=== PATIENT | female | born 1955 | race Caucasian/White ===

== ENCOUNTER 2022-06-12 09:00 | Day surgery (SDC) | payer MEDICARE, OTHER ==
[2022-06-10 13:38] LABS: ALBUMIN 3.5 G/DL (3.4-5.0); ALKALINE PHOSPHATASE 107 IU/L (46-116); BLOOD UREA NITROGEN 9 MG/DL (7-18); BUN/CREATININE RATIO 11.5 (10.0-20.0); CALCIUM 9.2 MG/DL (8.5-10.1); CHLORIDE 105 MMOL/L (99-107); CREATININE 0.78 MG/DL (0.40-0.90); PRE OP ALT 22 U/L (30-65); PRE OP ANION GAP 6 (8-16); PRE OP AST 17 U/L (10-37); PRE OP BILIRUB, TOTAL 0.6 MG/DL (0.0-1.0); PRE OP GLUCOSE 105 MG/DL (70-104); PRE OP POTASSIUM 3.9 MMOL/L (3.4-5.1); PRE OP SODIUM 140 MMOL/L (135-145); TOTAL CARBON DIOXIDE 28.9 MMOL/L (24-32); TOTAL PROTEIN 7.1 G/DL (6.4-8.2); eGFR 74 ML/MIN
[2022-06-10 14:05] LABS: BASOPHILS # (AUTO) 0.1 X10'3 (0-0.2); BASOPHILS % (AUTO) 0.8 % (0-1); EOSINOPHILS # (AUTO) 0.2 X10'3 (0-0.9); EOSINOPHILS % (AUTO) 2.5 % (0-6); LYMPHOCYTES # (AUTO) 1.6 X10'3 (1.1-4.8); LYMPHOCYTES % (AUTO) 21.1 % (21-51); MEAN CORPUSCULAR HEMOGLOBIN 29.7 PG (27.0-31.0); MEAN CORPUSCULAR HGB CONC 33.9 g/dL (33.0-36.5); MEAN CORPUSCULAR VOLUME 87.6 FL (78-98); MEAN PLATELET VOLUME 7.6 FL (7.4-10.4); MONOCYTES # (AUTO) 0.5 X10'3 (0-0.9); MONOCYTES % (AUTO) 6.7 % (2-12); NEUTROPHILS # (AUTO) 5.4 X10'3 (1.8-7.7); NEUTROPHILS % (AUTO) 68.9 % (42-75); PRE OP HEMATOCRIT 42.3 % (35.0-45.0); PRE OP HEMOGLOBIN 14.3 g/dL (12.0-16.0); PRE OP PLATELET COUNT 331 X10'3 (140-440); RED BLOOD COUNT 4.83 X10'6 (4.20-5.60); RED CELL DISTRIBUTION WIDTH 13.1 % (11.5-14.5)
[~2022-06-12] VITALS: Ht 157.5 cm; Wt 67.7 kg
[2022-06-12] VITALS (9 sets, daily range): BP systolic 109–130; BP diastolic 51–76
[2022-06-12] MEDS: famotidine 20mg tablet PO ONE ×2 (05:30→10:34)
[~2022-06-12 09:00] MED LIST: HYDR-3968 PO; clindamycin 600mg/D5W 50ml 50 ML IV ONE; ringers solution, lacted 1,000 ML IV SCH
[2022-06-12] MEDS ORDERED: labetalol 20mg/4ml (5mg/ml) syringe IV PRN (12:00)
[2022-06-12] MEDS ORDERED: morphine 4 MG/ML inj SYRINge IV PRN (12:00)
[2022-06-12] MEDS ORDERED: fentaNYL/PF 50MCG/1 ML 2ML syringe IV PRN ×2 (12:00)
[2022-06-12] MEDS ORDERED: hydrALAZINE 20mg/ml inj. IV PRN (12:00)
[2022-06-12] MEDS ORDERED: morphine 2 MG/ML inj. syringe IV PRN (12:00)
[2022-06-12] MEDS ORDERED: ondansetron/PF 4mg/2ml inj IV PRN (12:00)
[2022-06-12] MEDS ORDERED: ringers solution, lacted 1,000 ML IV SCH (12:00)
[2022-06-12] MEDS ORDERED: ondansetron/PF 4mg/2ml inj ONE (13:59)
[2022-06-12] MEDS ORDERED: morphine 10mg/ml inj. ONE (13:59)
[2022-06-12] MEDS ORDERED: propofol inj 20 ML IV ONE (13:59)
[2022-06-12] MEDS ORDERED: ROPIVAcaine 0.5% (5mg/ml) 30ml vial ONE (13:59)
[2022-06-12] MEDS ORDERED: midazolam 1 mg/ML 2ml injection ONE (13:59)
[2022-06-12] MEDS ORDERED: dexamethasone sod phosphate 4mg/ml inj. ONE (14:00)
[2022-06-12] MEDS ORDERED: LIDOcaine 2% (20mg/ml) 5ml vial ONE (14:05)
[2022-06-12] MEDS ORDERED: desflurane 240ml liquid inh. IH ONE (14:05)
--- NOTE | 2022-06-12 15:30 | NUR ---
Received from OR via CAIN TO RR 6, accompanied by Anesthesiologist DR JENSEN and report given by Anesthesiolgist. PT PRESENTS WITH PIV 20G LEFT HAND, DRESSING AND SLING ON RIGHT ARM, SPO2 99% 6L MASK, LR RUNNING AT 100MLS/HR, VSS. Addendum: 06/12/22 at 1545 by Coleen Sharma RN, RN Amended: Links added.
[2022-06-12] MEDS ORDERED: HYDROcodone/acetaminophen 7.5MG/325MG per 15ml UD CUP PO ONE (16:10)
--- NOTE | 2022-06-12 17:00 | NUR ---
DC HOME: ALL DISCHARGE CRITERIA HAS BEEN MET. VSS, PAIN AT A TOLERABLE LEVEL, VOIDING AND ABLE TO SAFELY AMBULATE AND TRANSFER SELF. IV TAKEN OUT WITHOUT ANY COMPLICATIONS. ALL DISCHARGE INSTRUCTIONS COVERED WITH PATIENT AND ALL QUESTIONS ANSWERED. PATIENT TAKEN OUT VIA WHEELCHAIR TO PERSONAL VEHICLE WHERE FAMILY/FRIEND DROVE PATIENT HOME. Addendum: 06/12/22 at 1720 by Coleen Sharma RN, RN Amended: Links added.
== END 2022-06-12 17:00 | disposition home or self-care (01) ==
LOC: PAS 09:00
PROVIDERS: ATTEND Orthopaedic Surgery Hand Surgery
DX: S52.021A Displaced fracture of olecranon process without intraarticular extension of right ulna, initial encounter for closed fracture (principal); Z88.8 Allergy status to other drugs, medicaments and biological substances; Z88.1 Allergy status to other antibiotic agents; Z88.0 Allergy status to penicillin; Z88.2 Allergy status to sulfonamides; Z91.040 Latex allergy status; Z91.011 Allergy to milk products; Z91.018 Allergy to other foods; G89.18 Other acute postprocedural pain; Z72.89 Other problems related to lifestyle; Z98.890 Other specified postprocedural states; Z79.899 Other long term (current) drug therapy; W19.XXXA Unspecified fall, initial encounter; Y93.89 Activity, other specified; Y92.89 Other specified places as the place of occurrence of the external cause; Y99.8 Other external cause status
CPT/HCPCS: 24586; 36415; 64417; 80053; 82948; 85025; 93005; C1713; J1100; J2250; J2274; J2405; J2704; J2795; J3490; J7030; J7120; L3999; Z7506; Z7508; Z7512; A4215; A4618; A6449; A7000